=== PATIENT | female | born 1950 | race Caucasian/White ===

== ENCOUNTER 2017-04-06 10:00 | Inpatient (IN) | payer BC ==
[~2017-04-06] VITALS: Ht 162.6 cm; Wt 81.2 kg
--- NOTE | ~2017-04-06 | OR ---
PATIENT'S NAME: TYLOR BRAMBILA [facility] AGE: 66 Y [address] ROOM: [place] [id number] LOCATION: [facility] ADMIT DATE: 04/16/2017 OR/Procedure Report DISCHARGE DATE: FAMILY PHYSICIAN: Ronnell Cespedes MD ATTENDING PHYSICIAN: REJI BARNARD SURGEON: Reji Barnard MD SURGEON PARTNER: 1. XIOMY Oleary. 2. Carlitos Morales CST/JUAN. DATE OF PROCEDURE: 04/16/2017 PREOPERATIVE DIAGNOSIS: Primary osteoarthritis, left hip. POSTOPERATIVE DIAGNOSIS: Primary osteoarthritis, left hip. OPERATION: Left total hip arthroplasty. ANESTHESIA: Spinal anesthesia plus subcutaneous and periarticular local anesthesia (ropivacaine with epinephrine and Toradol). ESTIMATED BLOOD LOSS: Approximately 200 mL. DRAIN: None. SPECIMEN: None. COMPLICATIONS: None. IMPLANTS: 1. [place] Trident titanium size 52 mm hemispherical uncemented acetabular shell with 1 dome hole cover and no screws. 2. [place] X3 neutral acetabular polyethylene liner with 32 mm inner diameter. 3. DePuy [place] size 6 high-offset uncemented femoral component. 4. A 32 mm diameter Biolox femoral head with +1 mm neck length. INDICATION FOR SURGERY: Tylor Brambila is a 66-year-old female who presents with advanced primary osteoarthritis, left hip, and associated severely compromised activities of daily living. The patient has decided to proceed with hip replacement after having been thoroughly counseled regarding the associated risks, benefits, and limitations. We have specifically reviewed the risks and implications of infection, deep venous thrombosis, pulmonary embolism, mortality, neurovascular complications, blood transfusion (and associated potential for disease transmission or transfusion reaction), stiffness, instability, leg length discrepancy, mechanical deterioration of the components (due to wear and to loosening), and the potential need for PATIENT'S NAME: TYLOR BRAMBILA [facility] AGE: 66 Y [address] ROOM: [place] [address] LOCATION: [facility] ADMIT DATE: 04/16/2017 OR/Procedure Report DISCHARGE DATE: FAMILY PHYSICIAN: Ronnell Cespedes MD ATTENDING PHYSICIAN: REJI BARNARD. It should be noted that the patient had a preoperative apparent leg length discrepancy (left approximately 10 mm longer than right) with the patient lying supine. This was associated with significant pelvic obliquity (right hemipelvis higher than left hemipelvis). The patient appreciated no associated subjective leg length discrepancy. However, the fact that the left leg measured longer preoperatively, the patient was informed to perhaps expect enough lengthening after surgery to notice this. She and her family members understand and accept this. DESCRIPTION OF PROCEDURE: The patient was positioned in a lateral decubitus position with the left side up after administration of anesthesia and prophylactic antibiotics. An axillary roll was placed and the non-operative leg was well padded. The pelvis was locked perpendicularly to the floor on a pegboard. The left hip and entire operative extremity were prepped and draped with vigilant sterile technique. The patient's name as well as the intended operative side and procedure were confirmed with a verbal time-out involving myself, the circulating nurse, the scrub nurse, and the anesthesiologist. The left hip was approached through a standard posterolateral incision. The fascia phong and the gluteus leif fascia were sharply divided in line with the overlying skin incision. The sciatic nerve was identified and was vigilantly protected throughout the entire case. The short external rotators and posterior capsule were divided from their respective femoral insertions and tagged with four #1 Ethibond sutures for later repair. The hip was posteriorly dislocated with combined flexion, adduction, and internal rotation. The femoral neck osteotomy was performed with an oscillating saw. Inspection of the femoral head demonstrated full-thickness loss of articular cartilage throughout its weightbearing surface. There was flattening of the femoral head, but no associated femoral head collapse. Circumferential acetabular exposure was obtained. Inspection of the acetabulum demonstrated full-thickness loss of articular cartilage throughout the acetabular dome. There was a small medial acetabular osteophyte. There was a large effusion consisting of benign-appearing translucent synovial fluid. There were no loose bodies. Remnants of the acetabular labrum were sharply thoroughly excised. The acetabulum was sequentially progressively reamed up to 51 mm with hemispherical power reamers. The final acetabular shell was impacted into position in 20 degrees of anteversion and 45 degrees of inclination. An excellent press-fit was obtained. No supplemental dome screw fixation was PATIENT'S NAME: TYLOR BRAMBILA [facility] AGE: 66 Y [address] ROOM: [place] [address] LOCATION: [facility] ADMIT DATE: 04/16/2017 OR/Procedure Report DISCHARGE DATE: FAMILY PHYSICIAN: Ronnell Cespedes MD ATTENDING PHYSICIAN: REJI BARNARD. A neutral trial liner was inserted. Attention was next focused upon femoral preparation. The femoral canal initiator was utilized. The femoral canal was reamed by hand with size 5 and subsequently on power to a size 6 with tapered conical reamers. The size 6 reamer engaged the endosteal cortex of the proximal femur, but was not difficult to seat. The femoral canal was subsequently sequentially progressively broached up to a size 6. The size 6 broach obtained an extremely tight proximal fit (despite the fact that the size 6 reamer did not achieve an extremely tight distal fit). The size 6 broach obtained excellent axial and rotational stability. Trial reductions with the above specified construct yielded acceptable stability and acceptable reproduction of leg length and offset. All trial components were removed. The final acetabular liner was inserted with excellent circumferential visualization of its locking mechanism to assure adequate deployment. The final femoral component was impacted into position. The femoral component achieved excellent axial and rotational stability. The trunnion of the femoral component was vigilantly protected prior to placement of the femoral head. The trunnion of the femoral component was thoroughly cleaned and dried prior to placement of the femoral head. The incision was thoroughly irrigated with bacteriostatic pulsatile saline lavage multiple times throughout the case. The entire joint space was thoroughly inspected and thoroughly irrigated to assure that there was no residual debris of any sort. A final reduction was then performed. After final reduction, the hip could be firmly externally rotated in full extension and zero degrees of abduction without anterior subluxation. In neutral rotation and zero degrees of abduction, the hip could be firmly flexed to 120 degrees without instability. At 90 degrees of flexion and zero degrees abduction, the hip could be internally rotated to 70 degrees before there was any hint of posterior subluxation. The posterior capsule and short external rotators were repaired through two drill holes in the posterior aspect of the greater trochanter. The fascia phong and gluteus leif fascia were closed with multiple simple and [id number] interrupted # 1 Ethibond and #1 Vicryl sutures. Subcutaneous tissues were thoroughly re-irrigated with bacteriostatic pulsatile saline lavage. Subcutaneous tissues were re-approximated with simple buried interrupted #0 Vicryl sutures. The skin was closed with superficial buried interrupted 2-0 Vicryl sutures followed by a running subcuticular 3-0 Monocryl suture, followed by Octylseal, followed by Steri- Strips with benzoin, followed by an occlusive Mepilex dressing. PATIENT'S NAME: TYLOR BRAMBILA [facility] AGE: 66 Y [address] ROOM: [place] [address] LOCATION: [facility] ADMIT DATE: 04/16/2017 OR/Procedure Report DISCHARGE DATE: FAMILY PHYSICIAN: Ronnell Cespedes MD ATTENDING PHYSICIAN: REJI BARNARD There were no intra-operative complications. It should be noted that the physician's housekeeping assistant played an active, integral role throughout this entire operation. By providing expert retraction, they greatly facilitated and expedited safe and effective exposure of the proximal femur and acetabulum for preparation and implantation of the components. They were also actively involved in the patient's positioning, prepping and draping, as well as wound closure. MD SUHA GRAHAM/modl /[id number] d: 04/16/17 1458 t: 04/22/17 0053, OPERATIVE SUMMARY
[2017-04-06] MEDS ORDERED: COREG25 MG PO (10:03)
[2017-04-06] MEDS ORDERED: MOBIC15 MG PO (10:03)
[2017-04-06] MEDS ORDERED: GLUCOSAMINE &1 EACH PO (10:04)
[2017-04-06] MEDS ORDERED: VITAMIN D1000 UNIT PO (10:04)
[2017-04-06] MEDS ORDERED: CALCIUM600 MG PO (10:05)
[2017-04-06] MEDS ORDERED: TYLENOL PM EX-1 EACH PO (10:05)
[2017-04-18] MEDS ORDERED: TYLENOL EXTRA500 MG PO (14:54)
[2017-04-18] MEDS ORDERED: COLACE100 MG PO (14:57)
[2017-04-18] MEDS ORDERED: NEURONTIN300 MG PO (14:58)
[2017-04-18] MEDS ORDERED: MIRALAX17 GM PO (14:59)
[2017-04-18] MEDS ORDERED: XARELTO10 MG PO (15:01)
[2017-04-18] MEDS ORDERED: VALIUM5 MG PO (15:03)
[2017-04-18] MEDS ORDERED: ROXICODONE 5MG (5 MG PO (15:05)
== END 2017-04-18 14:40 | disposition disaster alternative care site (69) | DRG 470 ==
LOC: GPOC 10:00 → G3N 04-16 06:11 → GPOC 04-16 07:00 → EDSTATUS 04-16 07:00 → G3N 04-16 13:04
PROVIDERS: ADMIT Orthopaedic Surgery
PROC: 0SRB02A Replacement of Left Hip Joint with Metal on Polyethylene Synthetic Substitute, Uncemented, Open Approach (ICD-10-PCS; principal; 2017-04-16)
DX: M16.12 Unilateral primary osteoarthritis, left hip (principal); E66.9 Obesity, unspecified; M21.70 Unequal limb length (acquired), unspecified site; M81.0 Age-related osteoporosis without current pathological fracture; Z68.30 Body mass index [BMI] 30.0-30.9, adult
CPT/HCPCS: C1776; J0690; J1100; J1170; J1885; J2001; J2250; J2405; J2795; J7120